=== PATIENT | male | born 1945 | race Hispanic/Latino ===

== ENCOUNTER 2023-10-22 10:12 | Emergency (ER) | payer OTHER ==
--- OUTSIDE RECORDS SUMMARY | 2023-10-22 10:16 | XMS REPORT | Continuity of Care Document ---
Author Name Unknown Address [address] [facility] [place] [address] [facility] thconnect Address [address] [facility] [place] [address] Care Team Providers Care Cement Block Maker Name Role Phone DANIEL OBRIEN Primary Care Physician WANDER Lundberg Attending Clinician Unavailable Wander Carrington Attending Clinician [phone] [facility] Attending Clinician Unavailable Doctor Unassigned, [place] Attending Clinician [facility] Attending Clinicia n Praveen Holcomb DO Attending Clinician [phone] RADHA KAUFMAN Attending Clinician Unavailable Radha Bai Attending Clinician [phone] Unknown, Attending Attending Clinician Unavailab Zainab MARRERO, Sendil K.H. Attending Clinician + [phone] EDUARDO STEELE K.H. Attending Clinician UnavailGENET Ott Attending Clinician Unavailable EZIO GIBBS Attending Clinician Unavail able EZIO GIBBS Attending Clinician Unavail able Lynn MARRERO, Willi Attending Clinician [phone] MIKEY OLSON Attending Clinician Unavaila MIKEY Kenney Attending Clinician UnavailMikey Cat MD Attending Clinician [phone] Only, Adc Test Attending Clinician Unavailable WILLI BAILEY Attending Clinician Unavailable Aissatou KINNEY, To Carrington Attending Clinician Unavail able Dominic Anderson DO Attending Clinician [phone] Clotilde Cramer MD Attending Clinician [phone] No Finn MD Attending Clinici an CLOTILDE CRAMER Attending Clinician Unavailable Irais Cook DO Attending Clinician [phone] Dieudonne Middleton DO Attending Clinician [phone] Shay Thibodeaux MD Attending Clinician [phone] IRAIS COOK Attending Clinician Unavailab WANDER Jessica Admitting Clinician Unavailable WILLI BAILEY Admitting Clinician Unavailable Willi Bailey MD Admitting Clinician [phone] No Finn MD Admitting Clinici an NO FINN Admitting Clinician Unavailable Shay Thibodeaux MD Admitting Clinician [phone] Payers Payer Name Policy Type Policy Number Effective Date Expirati on Date Source [employer] CHO[employer] [id number] 2021 00:00:00 MEDICARE PART A \\T\\ B [id number] 2012 00:00:00 Problems Condition Name Condition Details Condition Category Status Onset Date Resolution Date Last Treatment Date Treating Clinician Comments Source Abdominal pain, left lower quadrant Abdominal pain, left lower quadrant Disease Active 3-03 00:00: 00 [facility] Diverticul itis of large intestine without perforatio n or abscess without bleeding Diverticul itis of large intestine without perforatio n or abscess without bleeding Disease Active 00:00: 00 [facility] Abnormal CT scan, sigmoid colon Abnormal CT scan, sigmoid colon Disease Active 00:00: 00 [facility] A-fib A-fib Disease Active - 00:00: 00 [facility] Syncope and collapse Syncope and collapse Disease Active 08-15 00:00: 00 [facility] Paroxysmal VT Paroxysmal VT Disease Active 4- 00:00: 00 [facility] NSTEMI (non-ST elevated myocardial infarction ) NSTEMI (non-ST elevated myocardial infarction ) Disease Active 4- 00:00: 00 [facility] Elevated troponin Elevated troponin Disease Active 4 00:00: 00 [facility] Elevated troponin Elevated troponin Disease Active 4 00:00: 00 [facility] Essential hypertensi on Essential hypertensi on Disease Active 4 00:00: 00 [facility] SVT (supravent ricular tachycardi a) SVT (supravent ricular tachycardi a) Disease Active 4 00:00: 00 [facility] Dizzy spells Dizzy spells Disease Active 10-13 00:00: 00 [facility] Allergies, Adverse Reactions, Alerts Allergy Name Allergy Type Status Severity Reaction(s) Onset Date Inactive Date Treating Clinician Comments Source NO KNOWN ALLERGIE S Drug Class Active [facility] Social History Social Habit Start Date Stop Date Quantity Comments Source Sexual orientation U [facility] History of tobacco use Cigarette Smoker [facility] Tobacco use and exposure 2023-04-26 00:00:00 2023-04-26 00:00:00 Smokeless tobacco non-user [facility] Exposure to SARS-CoV-2 (event) 2022-08-05 00:00:00 2022-08-15 07:57:00 Not sure [facility] Cigarettes smoked current (pack per day) - Reported 2021-09-08 00:00:00 2021-09-08 00:00:00 [facility] Cigarette pack-years 2021-09-08 00:00:00 2021-09-08 00:00:00 [facility] Alcohol intake 2021-09-08 00:00:00 2021-09-08 00:00:00 Ex-drinker (finding) [facility] History of Social function 2020-11-07 00:00:00 2020-11-07 00:00:00 [facility] Sex Assigned At 1945 00:00:00 1945 00:00:00 [facility] Smoking Status Start Date Stop Date Source Unknown if ever smoked [facility] Ex-smoker 2023-04-26 00:00:00 2023-04-26 00[facility]00[facility]00 [facility]ations Ordered Medication Name Filled Medication Name Start Date Stop Date Current Medication? Ordering Clinician Indication Dosage Frequency Signature (SIG) Comments Components Source iopamidol (ISOVUE 370-500 mL) injection 80 mL 09-15 22:01: 00 09-15 22:06 :00 No [id number] 80mL 80 mL, Intravenou s, ONCE, 1 dose, On Sat09/16/23 at 1615, Routine [facility] aspirin 81 mg EC tablet 12:56: 34 Yes 81mg Take 1 tablet by mouth in the morning. [facility] aspirin 81 mg chewable tablet 12:56: 34 Yes 81mg Take 1 tablet by mouth in the morning. [facility] peg-electro lyte soln 236-22.74-6 .74 -5.86 gram solution 00:00: 00 Yes [id number] Take as directed before colonoscop y [facility] amoxicillin -clavulanat e (AUGMENTIN) 875-125 mg per tablet 1 tablet 2022-07 23:15: 00 04-26 22:28 :00 No 1{tbl} 1 tablet, Oral, ONCE NOW, 1 dose, On Sat04/26/23 at 1815, Routine
Reason for Anti-Infec tive: Documented Infection< br>Documen pasha Infection Site: Abdominal< br>Duratio n of Therapy: 10 days [facility] amoxicillin -clavulanat e 875-125 mg per tablet 2022-07 00:00: 00 Yes [id number] 1{tbl} Take 1 tablet by mouth every 12 (twelve) hours. [facility] amLODIPine 2.5 mg tablet 09-04 00:00: 00 Yes [id number] 2.5mg Take 1 tablet by mouth in the morning. [facility] losartan 25 mg tablet 09-04 00:00: 00 Yes [id number] 25mg Take 1 tablet by mouth in the morning. [facility] losartan 25 mg tablet 08-29 00:00: 00 09-04 00:00 :00 No [id number] 25mg Take 1 tablet by mouth in the morning and 1 tablet in the evening. [facility] aspirin 81 mg EC tablet 07-18 15:15: 41 Yes 81mg Take 81 mg by mouth daily. [facility] aspirin 81 mg chewable tablet 07-18 15:15: 41 Yes 81mg Take 81 mg by mouth daily. [facility] losartan 25 mg tablet 07-18 00:00: 00 08-29 00:00 :00 No [id number] 25mg Take 1 tablet by mouth in the morning. [facility] aspirin 81 mg chewable tablet 01-04 09:43: 44 Yes 81mg Take 81 mg by mouth daily. [facility] heparin (porcine) injection 5,000 Units 09-10 02:00: 00 Yes 5000U 5,000 Units, Subcutaneo us, Q12H, First dose on 09/09/21 at 2000, Until Discontinu ed, Routine [facility] aspirin 81 mg chewable tablet 09-09 15:09: 07 Yes 81mg Take 81 mg by mouth daily. [facility] aspirin chewable tablet 81 mg 09-09 15:00: 00 Yes 81mg 81 mg, Oral, DAILY, First dose on 09/09/21 at 0900, Until Discontinu ed, Routine [facility] atorvastati n 40 mg tablet 09-09 10:43: 12 09-09 00:00 :00 No 40mg Take 40 mg by mouth at bedtime. [facility] atorvastati n (LIPITOR) tablet 40 mg 09-09 03:00: 00 Yes 40mg 40 mg, Oral, QHS, First dose on Sat09/08/21 at 2100, Until Discontinu ed, Routine [facility] metoprolol succinate XL (TOPROL XL) tablet 25 mg 09-09 02:00: 00 Yes 25mg 25 mg, Oral, BID, First dose on Sat09/08/21 at 2000, Until Discontinu ed, Routine [facility] acetaminoph en (TYLENOL) tablet 650 mg 09-09 01:22: 33 Yes 650mg 650 mg, Oral, Q6HPRN, Starting on Sat09/08/21 at 1922, Until Discontinu ed, Routine, Pain (scale 1-3) [facility] metoprolol succinate XL 25 mg 24 hr tablet 09-09 00:00: 00 07-18 00:00 :00 No [id number] 12.5mg Take 0.5 tablets by mouth 2 (two) times daily. [facility] lactated ringers IV infusion 1,000 mL 09-08 22:00: 00 09-09 00:00 :00 No 1000mL at 42 mL/hr, 1,000 mL, IV Infusion, ONCE, 1 dose, On Sat09/08/21 at 1600, Routine, CV Preprocedu re [facility] NaCl 0.9% (NS) IV infusion 09-08 19:56: 41 Yes IV Infusion, CONTINUOUS PRN, Starting on Sat09/08/21 at 1356, Until Discontinu ed, Routine [facility] atorvastati n (LIPITOR) tablet 40 mg 08-17 03:00: 00 Yes 40mg 40 mg, Oral, QHS, First dose on Sat08/16/21 at 2100, Until Discontinu ed, Routine [facility] metoprolol succinate XL (TOPROL XL) tablet 25 mg 08-17 02:00: 00 Yes 25mg 25 mg, Oral, BID, First dose (after last modificati on) on 2/2/22 at 2000, Until Discontinu ed, Routine [facility] aspirin 81 mg chewable tablet 08-16 18:15: 17 Yes 81mg Take 81 mg by mouth daily. [facility] atorvastati n 40 mg tablet 08-16 18:15: 17 Yes 40mg Take 40 mg by mouth at bedtime. [facility] metoprolol succinate XL 25 mg 24 hr tablet 08-16 15:55: 33 08-16 00:00 :00 No 12.5mg Take 12.5 mg by mouth 2 (two) times daily. [facility] sennosides- docusate sodium (SENOKOT-S) 8.6-50 mg per tablet 1 tablet 08-16 15:00: 00 Yes 1{tbl} 1 tablet, Oral, DAILY, First dose on Sat08/16/21 at 0900, Until Discontinu ed, Routine [facility] aspirin chewable tablet 81 mg 08-16 15:00: 00 Yes 81mg 81 mg, Oral, DAILY, First dose on Sat08/16/21 at 0900, Until Discontinu ed, Routine [facility] heparin (porcine) injection 5,000 Units 08-16 14:00: 00 Yes 5000U 5,000 Units, Subcutaneo us, Q12H, First dose on Sat08/16/21 at 0800, Until Discontinu ed, Routine [facility] KCL (KLOR-CON M20) tablet 40 mEq 08-16 12:00: 00 08-16 11:30 :00 No 40meq 40 mEq, Oral, ONCE, 1 dose, On Sat08/16/21 at 0600, Routine [facility] metoprolol succinate XL (TOPROL XL) tablet 12.5 mg 08-16 04:45: 00 08-16 19:57 :51 No 12.5mg 12.5 mg, Oral, BID, First dose on Sat08/15/21 at 2245, Until Discontinu ed, Routine [facility] acetaminoph en (TYLENOL) tablet 650 mg 08-16 04:39: 56 Yes 650mg 650 mg, Oral, Q6HPRN, Starting on Sat08/15/21 at 2239, Until Discontinu ed, Routine, Pain (scale 1-3) [facility] metoprolol succinate XL 25 mg 24 hr tablet 08-16 00:00: 00 09-09 00:00 :00 No [id number] 25mg Take 1 tablet by mouth 2 (two) times daily for 360 days. [facility] NaCl 0.9% (NS) bolus infusion 500 mL 08-15 21:45: 00 08-15 21:27 :00 No 500mL at 999 mL/hr, 500 mL, IV Infusion, ONCE, 1 dose, On Sat08/15/21 at 1545, STAT [facility] aspirin 81 mg EC tablet 2020-07 10:33: 08 Yes 81mg Take 81 mg by mouth daily. [facility] metoprolol succinate XL 25 mg 24 hr tablet 2020-07 1- 00:00: 00 07-18 00:00 :00 No 12.5mg Take 0.5 tablets by mouth 2 (two) times daily with meals. [facility] atorvastati n 40 mg tablet -13 00:00: 00 01-04 00:00 :00 No 40mg Take 40 mg by mouth daily. [facility] Immunizations Ordered Immunization Name Filled Immunization Name Date Status Comments Source SARS-COV-2 COVID-19 PFIZER VACCINE 2020-12-05 00:00:00 Completed [facility] SARS-COV-2 COVID-19 PFIZER VACCINE 2020-12-05 00:00:00 Completed [facility] SARS-COV-2 COVID-19 PFIZER VACCINE 2020-12-05 00:00:00 Completed [facility] SARS-COV-2 COVID-19 PFIZER VACCINE 2020-12-05 00:00:00 Completed [facility] SARS-COV-2 COVID-19 PFIZER VACCINE 2020-12-05 00:00:00 Completed [facility] SARS-COV-2 COVID-19 PFIZER VACCINE 2020-12-05 00:00:00 Completed [facility] SARS-COV-2 COVID-19 PFIZER VACCINE 2020-12-05 00:00:00 Completed [facility] SARS-COV-2 COVID-19 PFIZER VACCINE 2020-12-05 00:00:00 Completed [facility] SARS-COV-2 COVID-19 PFIZER VACCINE 2020-12-05 00:00:00 Completed [facility] SARS-COV-2 COVID-19 PFIZER VACCINE 2020-12-05 00:00:00 Completed [facility] SARS-COV-2 COVID-19 PFIZER VACCINE 2020-12-05 00:00:00 Completed [facility] SARS-COV-2 COVID-19 PFIZER VACCINE 2020-12-05 00:00:00 Completed [facility] SARS-COV-2 COVID-19 PFIZER VACCINE 2020-11-14 00:00:00 Completed [facility] SARS-COV-2 COVID-19 PFIZER VACCINE 2020-11-14 00:00:00 Completed [facility] SARS-COV-2 COVID-19 PFIZER VACCINE 2020-11-14 00:00:00 Completed [facility] SARS-COV-2 COVID-19 PFIZER VACCINE 2020-11-14 00:00:00 Completed [facility] SARS-COV-2 COVID-19 PFIZER VACCINE 2020-11-14 00:00:00 Completed [facility] SARS-COV-2 COVID-19 PFIZER VACCINE 2020-11-14 00:00:00 Completed [facility] SARS-COV-2 COVID-19 PFIZER VACCINE 2020-11-14 00:00:00 Completed [facility] SARS-COV-2 COVID-19 PFIZER VACCINE 2020-11-14 00:00:00 Completed [facility] SARS-COV-2 COVID-19 PFIZER VACCINE 2020-11-14 00:00:00 Completed [facility] SARS-COV-2 COVID-19 PFIZER VACCINE 2020-11-14 00:00:00 Completed [facility] SARS-COV-2 COVID-19 PFIZER VACCINE 2020-11-14 00:00:00 Completed [facility] SARS-COV-2 COVID-19 PFIZER VACCINE 2020-11-14 00:00:00 Completed [facility] SARS-COV-2 COVID-19 PFIZER VACCINE Unknown Completed [facility] SARS-COV-2 COVID-19 PFIZER VACCINE Unknown Completed [facility] SARS-COV-2 COVID-19 PFIZER VACCINE Unknown Completed [facility] SARS-COV-2 COVID-19 PFIZER VACCINE Unknown Completed [facility] SARS-COV-2 COVID-19 PFIZER VACCINE Unknown Completed [facility] SARS-COV-2 COVID-19 PFIZER VACCINE Unknown Completed [facility] SARS-COV-2 COVID-19 PFIZER VACCINE Unknown Completed [facility] SARS-COV-2 COVID-19 PFIZER VACCINE Unknown Completed [facility] SARS-COV-2 COVID-19 PFIZER VACCINE Unknown Completed [facility] SARS-COV-2 COVID-19 PFIZER VACCINE Unknown Completed [facility] SARS-COV-2 COVID-19 PFIZER VACCINE Unknown Completed [facility] SARS-COV-2 COVID-19 PFIZER VACCINE Unknown Completed [facility] SARS-COV-2 COVID-19 PFIZER VACCINE Unknown Completed [facility] SARS-COV-2 COVID-19 PFIZER VACCINE Unknown Completed [facility] SARS-COV-2 COVID-19 PFIZER VACCINE Unknown Completed [facility] SARS-COV-2 COVID-19 PFIZER VACCINE Unknown Completed [facility] SARS-COV-2 COVID-19 PFIZER VACCINE Unknown Completed [facility] SARS-COV-2 COVID-19 PFIZER VACCINE Unknown Completed [facility] SARS-COV-2 COVID-19 PFIZER VACCINE Unknown Completed [facility] SARS-COV-2 COVID-19 PFIZER VACCINE Unknown Completed [facility] Vital Signs Vital Name Observation Time Observation Value Comments S ource Systolic blood pressure 2023-09-12 18:55:00 137 mm[Hg] [facility] Diastolic blood pressure 2023-09-12 18:55:00 83 mm[Hg] [facility] Heart rate 2023-09-12 18:55:00 91 /min [facility] Body temperature 2023-09-12 18:55:00 36.22 Marry [facility] Body height 2023-09-12 18:55:00 165.1 cm [facility] Body weight 2023-09-12 18:55:00 72.576 kg Univ [facility] BMI 2023-09-12 18:55:00 26.63 kg/m2 [facility] Oxygen saturation in Arterial blood by Pulse oximetry 2023-09-12 18:55:00 98 /min [facility] Systolic blood pressure 2023-04-26 22:25:00 118 mm[Hg] [facility] Diastolic blood pressure 2023-04-26 22:25:00 77 mm[Hg] [facility] Heart rate 2023-04-26 22:25:00 69 /min [facility] Body temperature 2023-04-26 22:25:00 36.72 Marry [facility] Respiratory rate 2023-04-26 22:25:00 14 /min [facility] Oxygen saturation in Arterial blood by Pulse oximetry 2023-04-26 22:25:00 98 /min [facility] Body height 2023-04-26 16:57:00 167.6 cm [facility] Body weight 2023-04-26 16:57:00 70.308 kg [facility] BMI 2023-04-26 16:57:00 25.02 kg/m2 [facility] Systolic blood pressure 2023-04-26 16:12:00 141 mm[Hg] [facility] Diastolic blood pressure 2023-04-26 16:12:00 87 mm[Hg] [facility] Heart rate 2023-04-26 16:12:00 106 /min [facility] 2023-04-26 16:12:00 36.89 Marry [facility] Respiratory rate 2023-04-26 16:12:00 17 /min [facility] Body height 2023-04-26 16:12:00 167.6 cm [facility] Body weight 2023-04-26 16:12:00 70.818 kg [facility] 2023-04-26 16:12:00 25.20 kg/m2 [facility] Oxygen saturation in Arterial blood by Pulse oximetry 2023-04-26 16:12:00 98 /min [facility] Systolic blood pressure 2022-07-18 21:07:00 143 mm[Hg] [facility] Diastolic blood pressure 2022-07-18 21:07:00 93 mm[Hg] [facility] Heart rate 2022-07-18 21:07:00 98 /min [facility] Oxygen saturation in Arterial blood by Pulse oximetry 2022-07-18 21:07:00 94 /min [facility] Body temperature 2022-07-18 21:04:00 36.5 Marry [facility] Respiratory rate 2022-07-18 21:04:00 18 /min [facility] Body height 2022-07-18 21:04:00 167.6 cm [facility] Body weight 2022-07-18 21:04:00 74.163 kg [facility] BMI 2022-07-18 21:04:00 26.39 kg/m2 [facility] Systolic blood pressure 2022-01-04 14:43:00 140 mm[Hg] [facility] Diastolic blood pressure 2022-01-04 14:43:00 76 mm[Hg] [facility] Heart rate 2022-01-04 14:41:00 63 /min [facility] Body temperature 2022-01-04 14:41:00 36.28 Marry [facility] Respiratory rate 2022-01-04 14:41:00 18 /min [facility] Body height 2022-01-04 14:41:00 167.6 cm [facility] Body weight 2022-01-04 14:41:00 76.204 kg [facility] BMI 2022-01-04 14:41:00 27.12 kg/m2 [facility] Systolic blood pressure 2021-09-09 18:10:00 115 mm[Hg] [facility] Diastolic blood pressure 2021-09-09 18:10:00 63 mm[Hg] [facility] Heart rate 2021-09-09 18:10:00 58 /min [facility] 2021-09-09 18:10:00 36.11 Marry [facility] Respiratory rate 2021-09-09 18:10:00 18 /min [facility] Oxygen saturation in Arterial blood by Pulse oximetry 2021-09-09 18:10:00 97 /min [facility] Body weight 2021-09-09 11:11:00 77.61 kg [facility] BMI 2021-09-09 11:11:00 26.80 kg/m2 [facility] Body height 2021-09-09 00:37:00 170.2 cm [facility] Systolic blood pressure 2021-08-16 20:47:00 144 mm[Hg] [facility] Diastolic blood pressure 2021-08-16 20:47:00 76 mm[Hg] [facility] Heart rate 2021-08-16 20:47:00 68 /min [facility] Oxygen saturation in Arterial blood by Pulse oximetry 2021-08-16 20:47:00 95 /min [facility] Body temperature 2021-08-16 20:45:00 36.33 Marry [facility] Respiratory rate 2021-08-16 20:45:00 18 /min [facility] Body weight 2021-08-16 04:32:00 77.747 kg [facility] Procedures Procedure Date / Time Performed Performing Clinician Source CONSENT/REFUSAL FOR DIAGNOSIS AND TREATMENT 2023-09-12 06:01:00 Doctor Unassigned, [place] [facility] COMP. METABOLIC PANEL ([id number]) 2023-04-26 19:58:00 Praveen Holcomb [facility] URINALYSIS 2023-04-26 19:58:00 Praveen Holcomb [facility] CBC WITH DIFF 2023-04-26 18:56:00 Praveen Holcomb [facility] CT ABDOMEN PELVIS WO CONTRAST 2023-04-26 18:28:46 Praveen Holcomb [facility] ASSIGNMENT OF BENEFITS 2023-04-26 18:16:23 Docto r Unassigned, [place] [facility] NOTICE OF PRIVACY PRACTICES 2023-04-26 16:39:36 Doctor Unassigned, [place] [facility] CONSENT/REFUSAL FOR DIAGNOSIS AND TREATMENT 2023-04-26 16:38:08 Doctor Unassigned, [place] [facility] ASSIGNMENT OF BENEFITS 2023-04-26 16:04:22 Docto r Unassigned, [place] [facility] PATIENT QUESTIONNAIRE 2022-08-30 06:01:00 Doctor Unassigned, [place] [facility] AUTHORIZATION TO RELEASE PHI TO [facility] 2022-07-18 06:01:00 Doctor Unassigned, [place] [facility] POWER OF SHERIFF'S DETECTIVE 2021-09-14 06:01:00 Doctor Thelma ssigned, [place] [facility] MAGNESIUM 2021-09-09 10:55:00 Aleisha Briones [facility] BASIC METABOLIC PANEL (NA, K, CL, CO2, GLUCOSE, BUN, CREATININE, CA) 2021-09-09 10:55:00 Aleisha Briones [facility] CBC WITH DIFF 2021-09-09 10:55:00 Lorenza Bray [facility] PROTHROMBIN TIME / INR 2021-09-08 16:47:00 Shar Bailey [facility] ASSIGNMENT OF BENEFITS 2021-09-06 15:17:12 Docto r Unassigned, [place] [facility] MAGNESIUM 2021-08-16 07:57:00 Trent Giron [facility] TROPONIN I 2021-08-16 07:57:00 Trent Giron [facility] THYROID STIMULATING HORMONE 2021-08-16 07:57:00 Kevin Morales [facility] BASIC METABOLIC PANEL (NA, K, CL, CO2, GLUCOSE, BUN, CREATININE, CA) 2021-08-16 07:57:00 Trent Giron [facility] CBC WITH DIFF 2021-08-16 07:57:00 Trent Giron [facility] LACTIC ACID WHOLE BLOOD 2021-08-15 21:38:00 , Ph illip [facility] CT HEAD WO CONTRAST 2021-08-15 19:15:32 Maylin Anderson [facility] URINALYSIS 2021-08-15 17:51:00 Dominic Anderson [facility] XR CHEST 1 VW 2021-08-15 17:43:30 Singer [facility] LACTIC ACID WHOLE BLOOD 2021-08-15 17:31:00 Pranay Anderson [facility] CBC WITH DIFF 2021-08-15 17:30:00 Singer [facility] COVID-19 (ID NOW RAPID TESTING) 2021-08-15 17:30:00 Dominic Anderson [facility] TROPONIN I 2021-08-15 17:30:00 Dominic Anderson [facility] COMP. METABOLIC PANEL (96030) 2021-08-15 17:30:00 Singer [facility] NOTICE OF PRIVACY PRACTICES 2021-08-15 17:16:20 Doctor Unassigned, [place] [facility] CONSENT/REFUSAL FOR DIAGNOSIS AND TREATMENT 2021-08-15 17:16:07 Doctor Unassigned, [place] [facility] EMERGENCY SERVICES AGREEMENTS AND AUTHORIZATIONS 2021-08-15 06:01:00 Doctor Unassigned, [place] [facility] Encounters Start Date/Time End Date/Time Encounter Type Admission Type Attending [facility] Care Facility Care Department Encounter ID Source 2024-01-13 09:30:00 2024-01-13 09:30:00 Outpatient WANDER ALANIS [facility] [id number] [facility] 2023-09-16 15:24:23 2023-09-16 23:59:00 Outpatient WANDER ALANIS [facility] [id number] [facility] 2023-09-16 15:24:23 2023-09-16 23:59:00 Hospital Encounter Wander Stauffer [facility] 1.2.840.114 350.1.13.10 4.2.7.2.686 [id number] [facility] 2023-09-12 14:15:00 2023-09-12 14:30:00 Hull Molder Visit Lab, [facility] Eh Wander [facility] 1.0.114 350.1.13.10 4.2.7.2.686 [id number] [facility] 2023-09-12 13:00:00 2023-09-12 14:13:59 Outpatient R EH WANDER [facility] [id number] [facility] 2023-09-12 13:00:00 2023-09-12 14:13:59 Office Visit Eh [facility] [place] [facility] 1.840.114 350.1.13.10 4.2.7.2.686 [id number] [facility] 2023-09-12 00:00:00 2023-09-12 00:00:00 Orders Only Doctor Unassigned, [place] [facility] 1.0.114 350.1.13.10 4.2.7.2.686 [id number] [facility] 2023-07-11 14:30:00 2023-07-11 14:30:00 Outpatient Lalita STAUFFER WANDER [facility] [id number] [facility] 2023-05-01 00:00:00 2023-05-01 00:00:00 Letter (Out) Clinic, [facility] Gastroenter ology [facility] 1.840.114 350.1.13.10 4.2.7.2.686 [id number] [facility] 2023-04-26 11:58:00 2023-04-26 17:36:00 Emergency Praveen Holcomb [facility] 1.2840.114 350.1.13.10 4.2.7.2.686 [id number] [facility] 2023-04-26 11:00:00 2023-04-26 11:11:28 Outpatient RADHA MENDIOLA [facility] [id number] [facility] 2023-04-26 11:00:00 2023-04-26 11:11:28 Urgent Care Radha Kaufman Unknown, [facility]ending [facility] 1.2.840.114 350.1.13.10 4.2.7.2.686 [id number] [facility] 2023-04-26 11:00:00 2023-04-26 11:11:28 Outpatient R RADHA KAUFMAN [facility] [id number] [facility] 2023-04-26 00:00:00 2023-04-26 00:00:00 Orders Only Doctor Unassigned, [place] [facility] 1.2840.114 350.1.13.10 4.2.7.2.686 [id number] [facility] 2022-09-06 00:00:00 2022-09-06 00:00:00 Telephone Eduardo Steele K[facility]iranjan[facility]. [facility] 1.2.840.114 350.1.13.10 4.2.7.2.686 [id number] [facility] 2022-09-03 00:00:00 2022-09-03 00:00:00 Telephone Eduardo SteeleH. [facility] 1.2.840.114 350.1.13.10 4.2.7.2.686 [id number] [facility] 2022-08-30 00:00:00 2022-08-30 00:00:00 Orders Only Doctor Unassigned, [place] [facility] 1.2840.114 350.1.13.10 4.2.7.2.686 [id number] [facility] 2022-08-29 00:00:00 2022-08-29 00:00:00 Telephone Steele, Sendil SoilaNiranjanHectorNiranjan [facility] 1.2.840.114 350.1.13.10 4.2.7.2.686 [id number] [facility] 2022-08-29 00:00:00 2022-08-29 00:00:00 Telephone Ivette Khloeya AlondraNiranjan [facility] 1.2.840.114 350.1.13.10 4.2.7.2.686 [id number] [facility] 2022-08-20 00:00:00 2022-08-20 00:00:00 Telephone Ivette Khloeya AlondraNiranjan [facility] 1.2.840.114 350.1.13.10 4.2.7.2.686 [id number] [facility] 2022-08-16 00:00:00 2022-08-16 00:00:00 Telephone SteeleEduardoNiranjan [facility] 1.2.840.114 350.1.13.10 4.2.7.2.686 [id number] [facility] 2022-08-15 07:58:55 2022-08-15 07:58:55 Outpatient R EDUARDO STEELE [facility] [id number] [facility] 2022-07-18 15:00:00 2022-07-18 15:33:26 Outpatient R IVETTE KHLOEYA [facility] [id number] [facility] 2022-07-18 15:00:00 2022-07-18 15:33:26 Office Visit Ivette Khloeya SoilaNiranjanHectorNiranjan [facility] 1.2.840.114 350.1.13.10 4.2.7.2.686 [id number] [facility] 2022-07-18 00:00:00 2022-07-18 00:00:00 Orders Only Doctor Unassigned, [place] [facility] 1.840.114 350.1.13.10 4.2.7.2.686 [id number] [facility] 2022-06-15 13:30:00 2022-06-15 13:30:00 Outpatient GENET MAYNARD [facility] [id number] [facility] 2022-06-14 13:00:00 2022-06-14 13:00:00 Outpatient EDUARDO HEREDIA [facility] [id number] [facility] 2022-04-09 10:00:00 2022-04-09 10:00:00 Outpatient EDUARDO HEREDIA [facility] [id number] [facility] 2022-01-26 08:00:00 2022-01-26 08:00:00 Outpatient EZIO APONTE [facility] [id number] [facility] 2022-01-04 09:30:00 2022-01-04 10:00:36 Outpatient EDUARDO HEREDIA [facility] [id number] [facility] 2022-01-04 09:30:00 2022-01-04 10:00:36 Office Visit Eduardo Steele [facility] 1..840.114 350..13.10 4.2.7.2.686 [id number] [facility] 2022-01-04 09:30:00 2022-01-04 10:00:36 Outpatient EDUARDO HEREDIA [facility] [id number] [facility] 2021-11-06 00:00:00 2021-11-06 00:00:00 Telephone Willi Bailey [facility] 1..840.114 350.1.13.10 4.2.7.2.686 [id number] [facility] 2021-09-14 00:00:00 2021-09-14 00:00:00 Orders Only Doctor Unassigned, [place] [facility] 1.2.840.114 350.1.13.10 4.2.7.2.686 [id number] [facility] 2021-09-08 10:42:00 2021-09-09 14:00:00 Outpatient R [facility] Hector, [facility] [id number] [facility] 2021-09-08 10:42:00 2021-09-09 14:00:00 Hospital Encounter Willi Bailey [facility] 1.2.840.114 350.1.13.10 4.2.7.2.686 [id number] [facility] 2021-09-06 09:00:00 2021-09-06 09:15:00 Laboratory Only Only, Adc Test Lynn [facility] 1.2.840.114 350.1.13.10 4.2.7.2.686 [id number] [facility] 2021-09-06 09:00:00 2021-09-06 09:00:00 Outpatient R WILLI BAILEY [facility] [id number] [facility] 2021-09-06 00:00:00 2021-09-06 00:00:00 Orders Only Doctor Unassigned, [place] [facility] 1.2.840.114 350.1.13.10 4.2.7.2.686 [id number] [facility] 2021-08-29 00:00:00 2021-08-29 00:00:00 Orders Only Doctor Unassigned, [place] [facility] 1.2.840.114 350.1.13.10 4.2.7.2.686 [id number] [facility] 2021-08-17 00:00:00 2021-08-17 00:00:00 Transition of Care Aissatou To SALASDarlyn CASSIDY KHALIL 1.2.840.114 350.1.13.10 4.2.7.2.686 [id number] [facility] 2021-08-15 11:08:00 2021-08-16 18:00:00 Hospital Encounter Dominic Anderson [facility] [place] 1.2.840.114 350.1.13.10 4.2.7.2.686 [id number] [facility] 2021-08-15 11:08:00 2021-08-16 18:00:00 Inpatient X CLOTILDE CRAMER [facility] [id number] [facility] 2021-08-11 08:00:00 2021-08-11 09:00:03 Outpatient R LYNN PAUL [facility] [id number] [facility] 2021-08-11 08:00:00 2021-08-11 08:20:00 Office Visit Willi Bailey [facility] 1.2.840.114 350.1.13.10 4.2.7.2.686 [id number] [facility] 2021-08-11 08:00:00 2021-08-11 08:00:00 Outpatient R WILLI BAILEY [facility] [id number] [facility] 2021-06-15 10:00:00 2021-06-15 10:35:25 Outpatient R EDUARDO STEELE [facility] [id number] [facility] 2021-06-15 09:55:44 2021-06-15 10:35:25 Office Visit Eduardo Steele [facility] 1.2.840.114 350.1.13.10 4.2.7.2.686 [id number] [facility] 2021-05-25 00:00:00 2021-05-25 00:00:00 Refill Eduardo Steele [facility] 1.2.840.114 350.1.13.10 4.2.7.2.686 [id number] [facility] 2021-02-07 10:03:03 2021-02-07 23:59:00 Outpatient R EDUARDO STEELE [facility] [id number] [facility] 2021-02-07 09:25:40 2021-02-07 10:18:27 Office Visit Eduardo Steele [facility] 1.2.840.114 350.1.13.10 4.2.7.2.686 [id number] [facility] 2021-02-07 09:30:00 2021-02-07 09:30:00 Outpatient R EDUARDO STEELE [facility] [id number] [facility] 2021-02-07 00:00:00 2021-02-07 00:00:00 Orders Only Doctor Unassigned, [place] [facility] 1.2.840.114 350.1.13.10 4.2.7.2.686 [id number] [facility] 2020-11-29 00:00:00 2020-11-29 00:00:00 Telephone Eduardo Steele [facility] 1.2.840.114 350.1.13.10 4.2.7.2.686 [id number] [facility] 2020-11-14 15:20:00 2020-11-14 15:20:[address] [facility] [id number] [facility] 2020-11-11 00:00:00 2020-11-11 00:00:00 Telephone Eduardo Steele [facility] Building 1.2.840.114 350.1.13.10 4.2.7.2.686 [id number] [facility] 2020-11-07 10:22:59 2020-11-07 11:06:05 Office Visit Eduardo Steele [facility] Building 1.2.840.114 350.1.13.10 4.2.7.2.686 [id number] [facility] 2020-11-07 10:30:00 2020-11-07 10:30:00 Outpatient R EDUARDO STEELE [facility] [id number] [facility] 2020-10-26 00:00:00 2020-10-26 00:00:00 Orders Only Doctor Unassigned, [place] [facility] 1.2.840.114 350.1.13.10 4.2.7.2.686 [id number] [facility] 2020-10-17 00:00:00 2020-10-17 00:00:00 Transition of Care To Reyez 1.2.840.114 350.1.13.10 4.2.7.2.686 [id number] [facility] 2020-10-13 13:59:00 2020-10-15 13:15:00 Hospital Encounter Irais Cook, Dieudonne Thibodeaux, Shay Rhodes [facility] 1.2840.114 350.1.13.10 4.2.7.2.686 [id number] [facility] 2020-10-13 13:59:00 2020-10-13 13:59:00 Emergency X IRAIS COOK [facility] ERT [id number] [facility] Results Test Description Test Time Test Comments Results Result Co mments Source [facility] WITH [id number] 19:20:12* Test Item Value Reference Range Interpretation Comme nts WBC (test code = 6690-2) 9.71 See_Comment [Automated messa ge] The system which generated this result transmitted reference range: 4.20 - 10.70 10*3/?L. The reference range was not used to interpret this result as normal/abnormal. RBC (test code = 789-8) 5.13 See_Comment [Automated messa ge] The system which generated this result transmitted reference range: 4.26 - 5.52 10*6/?L. The reference range was not used to interpret this result as normal/abnormal. HGB (test code = 718-7) 14.9 g/dL 12.2-16.4 HCT (test code = 4544-3) 45.0 % 38.4-49.3 MCV (test code = 787-2) 87.7 fL 81.7-95.6 MCH (test code = 785-6) 29.0 pg 26.1-32.7 MCHC (test code = 786-4) 33.1 g/dL 31.2-35.0 RDW-SD (test code = 08186-0) 40.0 fL 38.5-51.6 RDW-CV (test code = 788-0) 12.4 % 12.1-15.4 PLT (test code = 777-3) 277 See_Comment [Automated messa ge] The system which generated this result transmitted reference range: 150 - 328 10*3/?L. The reference range was not used to interpret this result as normal/abnormal. MPV (test code = 86116-2) 10.5 fL 9.8-13.0 NRBC/100 WBC (test code = 0045389114) 0.0 See_Comment [Automated me ssage] The system which generated this result transmitted reference range: 0.0 - 10.0 /100 WBCs. The reference range was not used to interpret this result as normal/abnormal. NRBC x10^3 (test code = 3760939203) See_Comment [Automated messa ge] The system which generated this result transmitted reference range: 10*3/?L. The reference range was not used to interpret this result as normal/abnormal. GRAN MAT (NEUT) % (test code = 770-8) 79.5 % IMM GRAN % (test code = 8011454354) 0.30 % LYMPH % (test code = 736-9) 14.5 % MONO % (test code = 5905-5) 4.6 % EOS % (test code = 713-8) 0.6 % BASO % (test code = 706-2) 0.5 % GRAN MAT x10^3(ANC) (test code = 1799318313) 7.71 10*3/uL 1.99-6.95 H IMM GRAN x10^3 (test code = 8693566632) 0.03 10*3/uL 0.00-0.06 LYMPH x10^3 (test code = 731-0) 1.41 10*3/uL 1.09-3.23 MONO x10^3 (test code = 742-7) 0.45 10*3/uL 0.36-1.02 EOS x10^3 (test code = 711-2) 0.06 10*3/uL 0.06-0.53 BASO x10^3 (test code = 704-7) 0.05 10*3/uL 0.01-0.09 Lab Interpretation (test code = 45658-1) [facility] 12:01:05* Test Item Value Reference Range Interpretation Comme nts MAGNESIUM (test code = 9569386302) 1.9 mg/dL 1.7-2.4 Lab Interpretation (test cod e = 32046-8) [facility] (NA, K, CL, CO2, GLUCOSE, BUN, CREATININE, CA)2021-09-09 12:01:04* Test Item Value Reference Range Interpretation Comme nts NA (test code = 1467436482) 139 mmol/L 135-145 K (test code = 2752520899) 4.0 mmol/L 3.5-5.0 CL (test code = 8273043401) 108 mmol/L 98-108 CO2 TOTAL (test code = 4623742838) 26 mmol/L 23-31 AGAP (test code = 4389305158) 2-16 BUN (test code = 7849309650) 11 mg/dL 7-23 GLUCOSE (test code = 5195357292) 96 mg/dL 70-110 CREATININE (test code = 8008538948) 0.76 mg/dL 0.60-1.25 CALCIUM (test code = 8565235403) 8.2 mg/dL 8.6-10.6 L eGFR (test code = 9326203623) mL/min/1.73m2 JOAQUIM (test code = JOAQUIM) Association of Glomerular Filtration Rate (GFR) and Staging of Kidney Disease* + --+ --+ ------+| GFR (mL/min/1.73 m2) ?| With Kidney Damage ?| ?Without Kidney Damage+ --------+ --------+ +| ?>90 ?| ?Stage one ?| ? Normal ?+ ---+ ---+ -------+| ?60-89 ?| ?Stage two ?| ? Decreased GFR ? + --+ --+ ------+| ?30-59 ?| ?Stage three ?| ? Stage three ? + --+ --+ ------+| ?15-29 ?| ?Stage four ? | ? Stage four ?+ ---+ ---+ -------+| ?<15 (or dialysis) ? ?| ?Stage five ? | ? Stage five ?+ ---+ ---+ -------+ *Each stage assumes the associated GFR level has been in effect for at least three months. ?Stages 1 to 5, with or without kidney disease, indicate chronic kidney disease. Notes: Determination of stages one and two (with eGFR >59mL/min/1.73 m2) requires estimation of kidney damage for at least three months as defined by structural or functional abnormalities of the kidney, manifested by either:Pathological abnormalities or Markers of kidney damage (including abnormalities in the composition of the blood or urine or abnormalities in imaging tests). Lab Interpretation (test code = 13247-6) Abnormal [facility] with [id number] 11:44:22* Test Item Value Reference Range Interpretation Comme nts WBC (test code = 6690-2) See_Comment [Automated Phraxis] The system which generated this result transmitted reference range: 4.20 - 10.70 10*3/?L. The reference range was not used to interpret this result as normal/abnormal. RBC (test code = 789-8) See_Comment [Automated messa ge] The system which generated this result transmitted reference range: 4.26 - 5.52 10*6/?L. The reference range was not used to interpret this result as normal/abnormal. HGB (test code = 718-7) 12.8 g/dL 12.2-16.4 HCT (test code = 4544-3) 37.4 % 38.4-49.3 L MCV (test code = 787-2) 86.6 fL 81.7-95.6 MCH (test code = 785-6) 29.6 pg 26.1-32.7 MCHC (test code = 786-4) 34.2 g/dL 31.2-35.0 RDW-SD (test code = 53193-2) 38.5 fL 38.5-51.6 RDW-CV (test code = 788-0) 12.3 % 12.1-15.4 PLT (test code = 777-3) See_Comment [Automated messa ge] The system which generated this result transmitted reference range: 150 - 328 10*3/?L. The reference range was not used to interpret this result as normal/abnormal. MPV (test code = 21689-2) 10.6 fL 9.8-13.0 NRBC/100 WBC (test code = 8870347145) See_Comment [Automated [email or web address] ssage] The system which generated this result transmitted reference range: 0.0 - 10.0 /100 WBCs. The reference range was not used to interpret this result as normal/abnormal. NRBC x10^3 (test code = 1862560522) <0.01 See_Comment [Automated messa ge] The system which generated this result transmitted reference range: 10*3/?L. The reference range was not used to interpret this result as normal/abnormal. GRAN MAT (NEUT) % (test code = 770-8) 59.4 % IMM GRAN % (test code = 2464480360) 0.30 % LYMPH % (test code = 736-9) 29.1 % MONO % (test code = 5905-5) 7.7 % EOS % (test code = 713-8) 3.0 % BASO % (test code = 706-2) 0.5 % GRAN MAT x10^3(ANC) (test code = 3272958041) 3.40 10*3/uL 1.99-6.95 IMM GRAN x10^3 (test code = 4086030761) <0.03 0.00-0.06 LYMPH x10^3 (test code = 731-0) 1.67 10*3/uL 1.09-3.23 MONO x10^3 (test code = 742-7) 0.44 10*3/uL 0.36-1.02 EOS x10^3 (test code = 711-2) 0.17 10*3/uL 0.06-0.53 BASO x10^3 (test code = 704-7) 0.03 10*3/uL 0.01-0.09 Lab Interpretation (test code = 28135-1) [facility]normal [facility] [id number] 18:57:34* Test Item Value Reference Range Interpretation Comme nts PROTIME PATIENT (test code = 5964-2) See_Comment [Automated [employer]] The system which generated this result transmitted reference range: 10.1 - 12.6 Seconds. The reference range was not used to interpret this result as normal/abnormal. INR (test code = 6301-6) Normal INR <1.1; Warfarin Therapeutic range 2.0 to 3.0 or 2.5 to 3.5, depending upon the indications. Lab Interpretation (test code = 09714-0) Normal [facility] [id number] 17:48:16 * Test Item Value Reference Range Interpretation Comme nts TSH (test code = 5486826028) See_Comment [Automated [employer]] The system which generated this result transmitted reference range: 0.45 - 4.70 mIU/L. The reference range was not used to interpret this result as normal/abnormal. Lab Interpretation (test code = 76978-6) Normal [facility] [id number] 08:50:27* Test Item Value Reference Range Interpretation Comments TROPONIN I (test code = 0398162102) 0.002 ng/mL See_Comment [Automated message] The system which generated this result transmitted reference range: <=0.034. The reference range was not used to interpret this result as normal/abnormal. JOAQUIM (test code = JOAQUIM) Reference (Normal) Range (defined by the 99th percentile reference limit): <= 0.034 ng/mL Note: Cardiac troponin begins to rise 3-4 hours after the onset of ischemia. Repeat in 4-6 hours if the sample was drawn within 3-4 hours of the onset of the symptom and found normal. Diagnosis of myocardial injury is made with acute changes in cTn concentrations with at least one serial sample above the 99th percentile upper reference limit (URL), taken together with the patient's clinical presentation. Biotin has been reported to cause a negative bias, interpret results relative to patient's use of biotin. Lab Interpretation (test code = 74733-8) Normal [facility] Metabolic Panel (NA, K, CL, CO2, GLUCOSE, BUN, CREATININE, CA)2021-08-16 08:35:43* Test Item Value Reference Range Interpretation Comme nts NA (test code = 4667289331) 135 mmol/L 135-145 K (test code = 2356159374) 3.7 mmol/L 3.5-5.0 CL (test code = 6182983501) 106 mmol/L 98-108 CO2 TOTAL (test code = 1343405970) 25 mmol/L 23-31 AGAP (test code = 1360342933) 2-16 BUN (test code = 8838651718) 10 mg/dL 7-23 GLUCOSE (test code = 8460172332) 119 mg/dL 70-110 H CREATININE (test code = 9882036671) 0.77 mg/dL 0.60-1.25 CALCIUM (test code = 6549333647) 8.6 mg/dL 8.6-10.6 eGFR (test code = 2661699517) mL/min/1.73m2 JOAQUIM (test code = JOAQUIM) Association of Glomerular Filtration Rate (GFR) and Staging of Kidney Disease* + --+ --+ ------+| GFR (mL/min/1.73 m2) ?| With Kidney Damage ?| ?Without Kidney Damage+ --------+ --------+ +| ?>90 ?| ?Stage one ?| ? Normal ?+ ---+ ---+ -------+| ?60-89 ?| ?Stage two ?| ? Decreased GFR ? + --+ --+ ------+| ?30-59 ?| ?Stage three ?| ? Stage three ? + --+ --+ ------+| ?15-29 ?| ?Stage four ? | ? Stage four ?+ ---+ ---+ -------+| ?<15 (or dialysis) ? ?| ?Stage five ? | ? Stage five ?+ ---+ ---+ -------+ *Each stage assumes the associated GFR level has been in effect for at least three months. ?Stages 1 to 5, with or without kidney disease, indicate chronic kidney disease. Notes: Determination of stages one and two (with eGFR >59mL/min/1.73 m2) requires estimation of kidney damage for at least three months as defined by structural or functional abnormalities of the kidney, manifested by either:Pathological abnormalities or Markers of kidney damage (including abnormalities in the composition of the blood or urine or abnormalities in imaging tests). Lab Interpretation (test code = 91845-4) [facility]normal [id number] 08:35:43* Test Item Value Reference Range Interpretation Comme nts MAGNESIUM (test code = 9484367284) 2.0 mg/dL 1.7-2.4 Lab Interpretation (test cod e = 70056-4) Normal [facility] with Iajbimesirrr6913-48-47 08:13:44* Test Item Value Reference Range Interpretation Comme nts WBC (test code = 6690-2) See_Comment [Automated Phraxis] The system which generated this result transmitted reference range: 4.20 - 10.70 10*3/?L. The reference range was not used to interpret this result as normal/abnormal. RBC (test code = 789-8) See_Comment [Automated Phraxis] The system which generated this result transmitted reference range: 4.26 - 5.52 10*6/?L. The reference range was not used to interpret this result as normal/abnormal. HGB (test code = 718-7) 14.2 g/dL 12.2-16.4 HCT (test code = 4544-3) 41.3 % 38.4-49.3 MCV (test code = 787-2) 85.9 fL 81.7-95.6 MCH (test code = 785-6) 29.5 pg 26.1-32.7 MCHC (test code = 786-4) 34.4 g/dL 31.2-35.0 RDW-SD (test code = 99566-7) 37.3 fL 38.5-51.6 L RDW-CV (test code = 788-0) 11.9 % 12.1-15.4 L PLT (test code = 777-3) See_Comment [Automated messa ge] The system which generated this result transmitted reference range: 150 - 328 10*3/?L. The reference range was not used to interpret this result as normal/abnormal. MPV (test code = 78043-2) 10.2 fL 9.8-13.0 NRBC/100 WBC (test code = 9318911621) See_Comment [Automated [email or web address] ssage] The system which generated this result transmitted reference range: 0.0 - 10.0 /100 WBCs. The reference range was not used to interpret this result as normal/abnormal. NRBC x10^3 (test code = 8697874402) <0.01 See_Comment [Automated [employer]traV[employer] ge] The system which generated this result transmitted reference range: 10*3/?L. The reference range was not used to interpret this result as normal/abnormal. GRAN MAT (NEUT) % (test code = 770-8) 63.9 % IMM GRAN % (test code = 3226388910) 0.40 % LYMPH % (test code = 736-9) 26.3 % MONO % (test code = 5905-5) 7.0 % EOS % (test code = 713-8) 1.8 % BASO % (test code = 706-2) 0.6 % GRAN MAT x10^3(ANC) (test code = 7445681124) 4.93 10*3/uL 1.99-6.95 IMM GRAN x10^3 (test code = 0021031942) 0.03 10*3/uL 0.00-0.06 LYMPH x10^3 (test code = 731-0) 2.03 10*3/uL 1.09-3.23 MONO x10^3 (test code = 742-7) 0.54 10*3/uL 0.36-1.02 EOS x10^3 (test code = 711-2) 0.14 10*3/uL 0.06-0.53 BASO x10^3 (test code = 704-7) 0.05 10*3/uL 0.01-0.09 Lab Interpretation (test code = 85163-2) [id number]* Test Item Value Reference Range Interpretation Comments TROPONIN I (test code = 6121384118) 0.005 ng/mL See_Comment [Automated message] The system which generated this result transmitted reference range: <=0.034. The reference range was not used to interpret this result as normal/abnormal. JOAQUIM (test code = JOAQUIM) Reference (Normal) Range (defined by the 99th percentile reference limit): <= 0.034 ng/mL Note: Cardiac troponin begins to rise 3-4 hours after the onset of ischemia. Repeat in 4-6 hours if the sample was drawn within 3-4 hours of the onset of the symptom and found normal. Diagnosis of myocardial injury is made with acute changes in cTn concentrations with at least one serial sample above the 99th percentile upper reference limit (URL), taken together with the patient's clinical presentation. Biotin has been reported to cause a negative bias, interpret results relative to patient's use of biotin. Lab Interpretation (test code = 85073-8) [facility]OL[facility] (05756)2021-08-15 18:44:21* Test Item Value Reference Range Interpretation Comme nts NA (test code = 0409259817) 134 mmol/L 135-145 L K (test code = 4579632494) 3.8 mmol/L 3.5-5.0 CL (test code = 2861712394) 103 mmol/L 98-108 CO2 TOTAL (test code = 3355812341) 22 mmol/L 23-31 L AGAP (test code = 7188239802) 2-16 BUN (test code = 6066219268) 10 mg/dL 7-23 GLUCOSE (test code = 0235430416) 114 mg/dL 70-110 H CREATININE (test code = 6781279542) 0.76 mg/dL 0.60-1.25 TOTAL BILI (test code = 2202959763) 0.7 mg/dL 0.1-1.1 CALCIUM (test code = 0428574461) 8.8 mg/dL 8.6-10.6 T PROTEIN (test code = 5093082749) 7.4 g/dL 6.3-8.2 ALBUMIN (test code = 9796528928) 4.4 g/dL 3.5-5.0 ALK PHOS (test code = 3162770824) 98 U/L 34-122 ALTv (test code = 1742-6) 29 U/L 5-50 AST(SGOT) (test code = 1002595085) 28 U/L 13-40 eGFR (test code = 3427706380) mL/min/1.73m2 JOAQUIM (test code = JOAQUIM) Association of Glomerular Filtration Rate (GFR) and Staging of Kidney Disease* + --+ --+ ------+| GFR (mL/min/1.73 m2) ?| With Kidney Damage ?| ?Without Kidney Damage+ --------+ --------+ +| ?>90 ?| ?Stage one ?| ? Normal ?+ ---+ ---+ -------+| ?60-89 ?| ?Stage two ?| ? Decreased GFR ? + --+ --+ ------+| ?30-59 ?| ?Stage three ?| ? Stage three ? + --+ --+ ------+| ?15-29 ?| ?Stage four ? | ? Stage four ?+ ---+ ---+ -------+| ?<15 (or dialysis) ? ?| ?Stage five ? | ? Stage five ?+ ---+ ---+ -------+ *Each stage assumes the associated GFR level has been in effect for at least three months. ?Stages 1 to 5, with or without kidney disease, indicate chronic kidney disease. Notes: Determination of stages one and two (with eGFR >59mL/min/1.73 m2) requires estimation of kidney damage for at least three months as defined by structural or functional abnormalities of the kidney, manifested by either:Pathological abnormalities or Markers of kidney damage (including abnormalities in the composition of the blood or urine or abnormalities in imaging tests). Lab Interpretation (test code = 41024-6) Abnormal [facility] WITH [id number] 18:13:55* Test Item Value Reference Range Interpretation Comme nts WBC (test code = 6690-2) See_Comment [Automated messa ge] The system which generated this result transmitted reference range: 4.20 - 10.70 10*3/?L. The reference range was not used to interpret this result as normal/abnormal. RBC (test code = 789-8) See_Comment [Automated messa ge] The system which generated this result transmitted reference range: 4.26 - 5.52 10*6/?L. The reference range was not used to interpret this result as normal/abnormal. HGB (test code = 718-7) 15.1 g/dL 12.2-16.4 HCT (test code = 4544-3) 43.2 % 38.4-49.3 MCV (test code = 787-2) 85.4 fL 81.7-95.6 MCH (test code = 785-6) 29.8 pg 26.1-32.7 MCHC (test code = 786-4) 35.0 g/dL 31.2-35.0 RDW-SD (test code = 94744-3) 36.0 fL 38.5-51.6 L RDW-CV (test code = 788-0) 11.7 % 12.1-15.4 L PLT (test code = 777-3) See_Comment [Automated messa ge] The system which generated this result transmitted reference range: 150 - 328 10*3/?L. The reference range was not used to interpret this result as normal/abnormal. MPV (test code = 88102-6) 10.5 fL 9.8-13.0 NRBC/100 WBC (test code = 0509917103) See_Comment [Automated [email or web address] ssage] The system which generated this result transmitted reference range: 0.0 - 10.0 /100 WBCs. The reference range was not used to interpret this result as normal/abnormal. NRBC x10^3 (test code = 6808273154) <0.01 See_Comment [Automated messa ge] The system which generated this result transmitted reference range: 10*3/?L. The reference range was not used to interpret this result as normal/abnormal. GRAN MAT (NEUT) % (test code = 770-8) 67.0 % IMM GRAN % (test code = 4647690205) 0.30 % LYMPH % (test code = 736-9) 25.0 % MONO % (test code = 5905-5) 6.0 % EOS % (test code = 713-8) 1.2 % BASO % (test code = 706-2) 0.5 % GRAN MAT x10^3(ANC) (test code = 8193786583) 5.04 10*3/uL 1.99-6.95 IMM GRAN x10^3 (test code = 5520041557) <0.03 0.00-0.06 LYMPH x10^3 (test code = 731-0) 1.88 10*3/uL 1.09-3.23 MONO x10^3 (test code = 742-7) 0.45 10*3/uL 0.36-1.02 EOS x10^3 (test code = 711-2) 0.09 10*3/uL 0.06-0.53 BASO x10^3 (test code = 704-7) 0.04 10*3/uL 0.01-0.09 Lab Interpretation (test code = 35041-5) Abnormal [facility] Notes Date/Time Note Provider Source 2023-09-12 14:15:00 [id number] KpjWgaPKw8s3gydqS0GlOX1261-81-32B19:15:00F ormatting of this note is different from the original.Images from the original note were not included.Venipuncture collection performed by clean technique on the left anticubitus. Total of 1 attempts were made. Slight pressure and a bandage/dressing were applied to the site(s). The patient experienced no complications. The following specimens were processed according to instructions and sent to [facility] laboratories per lab order on 09/12/23:LT BLUE1 SSTREDLAVPPTDK GREEN (LiHep)DK GREEN (SodH)GRAYDK BLUE (K2)DK BLUE (S)ACDBlood CultureNIPT/NTD [id number] DborES4292-80-92Q32:31:44Nurse NoteTXT1.2.840.297612.1.13.104.2.7.2.52051 9|[id number] for patient gpgo49536-9Rsmmw NoteLNNARRATIVEFormatted C-CDA narrative text[address] Ka[id number] WZJFFCXOEGLDFHUZ5142-08-01K05:31:441.2.840 .087216.1.72.3.15|1.2.840.855328.1.13.104. [id number] [facility]"
[2023-10-22] MEDS ORDERED: NA CHLORIDE 0.9% 1,000 ML ONE (10:44)
[2023-10-22] MEDS ORDERED: ONDANSETRON 4 MG/2 ML VIAL ONE (10:44)
[2023-10-22] MEDS ORDERED: MORPHINE 4 MG/ML SYR ONE ×2 (10:44→15:32)
[2023-10-22 11:22] LABS: Absolute Lymphocytes (CBC) 0.9 K/uL (0.7-4.9); Absolute Monocytes 0.7 K/uL (0.1-1.3); Absolute Neutrophil 10.1 K/uL (1.8-8.0); Basophils % 0.1 % (0-1.3); Eosinophils % 0.1 % (0-4.4); Hematocrit 40.3 % (39.6-49.0); Hemoglobin 13.4 g/dL (13.6-17.9); Lymphocytes % 7.3 % (15.3-44.8); MCH 28.1 pg (27.0-35.0); MCHC 33.3 g/dL (32.0-36.0); MCV 84.4 fL (80-100); MPV 8.1 fL (7.6-11.3); Monocytes % 5.8 % (3.3-12.3); Neutrophils % 86.7 % (41.7-73.7); Platelets 334 thou/uL (152-406); RBC Red Blood Cell Count 4.78 M/uL (4.33-5.43)
[2023-10-22 11:44] LABS: Albumin 2.8 g/dL (3.4-5.0); Albumin/Globulin Ratio 0.6 (1.1-1.8); Anion Gap 9.2 mEq/L (5.0-15.0); Bilirubin Total 0.8 mg/dL (0.2-1.0); Globulin 4.7 g/dL (2.3-3.5); Potassium 3.2 mEq/L (3.5-5.1); Protein, Total 7.5 g/dL (6.4-8.2)
--- NOTE | 2023-10-22 12:42 | RAD REPORT ---
EXAM DESCRIPTION: CTAbdomen Pelvis W Contrast - 10/22/2023 12:30 pm CLINICAL HISTORY: Abdominal pain. ABD PAIN COMPARISON: No comparisons TECHNIQUE: Biphasic CT imaging of the abdomen and pelvis was performed with 100 ml non-ionic IV cont rast. All CT scans are performed using dose optimization technique as appropriate and may include automated exposure control or mA/KV adjustment according to patient size. FINDINGS: Linear atelectasis is present in both lung bases. 11 mm cyst is present in the left lobe of the liver medially. No aggressive liver lesion or biliary d ilatation. The spleen, pancreas, adrenal glands and kidneys are within normal limits. Moderate dilated fluid-filled small bowel loops are present in the abdomen compatible with partial me chanical small-bowel obstruction. In addition, there is moderate obstruction of the colon. This appe ars to be caused by a large mass measuring 10 cm in length and 7 cm in transverse dimension with mult iple surrounding pericolonic lymph nodes present this likely represents neoplasia of the colon. Sever al additional enlarged local lymphadenopathy is present. Trace free fluid is seen in the inferior abd omen and pelvis. No lytic or blastic bone lesion IMPRESSION: Very large sigmoid colon mass is present measuring approximately 10 x 7 cm. Multiple enl arged lymph nodes are seen surrounding the mass and any local/ regional stations. The findings are mo st compatible with neoplasia. Moderate mechanical obstruction of the colon and small intestine from this finding.
[2023-10-22 13:18] LABS: Blood Morphology Comment NOT SEEN (NOT SEEN); Platelet Estimate ADEQ; White Blood Cell Scan OK (OK)
[2023-10-22] MEDS ORDERED: POTASSIUM CL SA 10 MEQ TAB PO ONE (13:43)
--- NOTE | 2023-10-22 14:20 | ER ---
Nurse's Notes [facility] Name: Kwadwo Morrissey Age: 78 yrs Sex: Male : 1945 Arrival Date: 10/22/2023 Time: 10:12 Bed 5 Private MD: Diagnosis: Localized swelling, mass and lump, unspecified-Colon mass;Other intestinal obstruction Presentation: 10/21 10:51 Chief complaint: Patient states: he had a colonoscopy yesterday to check for a bowel 6 mass. pt states he's had increased pain, black stool, and weakness today. Coronavirus screen: At this time, the client does not indicate any symptoms associated with coronavirus-19. Ebola Screen: No symptoms or risks identified at this time. Initial Sepsis Screen: Does the patient meet any 2 criteria? No. Patient's initial sepsis screen is negative. Does the patient have a suspected source of infection? No. Patient's initial sepsis screen is negative. Risk Assessment: Do you want to hurt yourself or someone else? Patient reports no desire to harm self or others. Onset of symptoms was October 22, 2023. 10:51 Method Of Arrival: Ambulatory [facility] 10:51 Acuity: LIZZETTE 3 kc6 Historical: - Allergies: 10:53 No Known Allergies; kc6 - PMHx: 11:24 Myocardial infarction; Hypertensive disorder; kc6 - PSHx: 11:24 cardiac ablation; kc6 - Immunization history:: Adult Immunizations unknown. - Infectious Disease History:: Denies. - Social history:: Smoking status: unknown. - History obtained from: son. Screenin:50 [facility] ED Fall Risk Assessment (Adult) History of falling in the last 3 months, kc6 including since admission No falls in past 3 months (0 pts) Confusion or Disorientation No (0 pts) Intoxicated or Sedated No (0 pts) Impaired Gait No (0 pts) Mobility Assist Device Used No (0 pt) Altered Elimination No (0 pt) Score/Fall Risk Level 0 - 2 = Low Risk. Abuse screen: Denies threats or abuse. Denies injuries from another. Nutritional screening: No deficits noted. Tuberculosis screening: No symptoms or risk factors identified. Assessment: 10:53 General: Appears in no apparent distress. uncomfortable, well groomed, well developed, kc6 Behavior is calm, cooperative, appropriate for age. Pain: Complains of pain in abdomen. Neuro: Level of Consciousness is awake, alert, obeys commands, Oriented to person, place, time, situation, Appropriate for age. Cardiovascular: Capillary refill < 3 seconds. Respiratory: Airway is patent Trachea midline Respiratory effort is even, unlabored, Respiratory pattern is regular, symmetrical. GI: Abdomen is flat, non-distended, Bowel sounds present X 4 quads. Abd is soft X 4 quads Abdomen is tender to palpation X 4 quads. Reports bloody stool, Patient currently denies nausea, vomiting. : No signs and/or symptoms were reported regarding the genitourinary system. EENT: No signs and/or symptoms were reported regarding the EENT system. Derm: No signs and/or symptoms reported regarding the dermatologic system. Skin is intact, is healthy with good turgor, Skin is pink, warm \T\ dry. Musculoskeletal: No signs and/or symptoms reported regarding the musculoskeletal system. Circulation, motion, and sensation intact. Capillary refill < 3 seconds, Range of motion: intact in all extremities. 11:55 Reassessment: Patient appears in no apparent distress at this time. No changes from kc6 previously documented assessment. Patient and/or family updated on plan of care and expected duration. Pain level reassessed. Patient is alert, oriented x 3, equal unlabored respirations, skin warm/dry/pink. Patient states feeling better. Patient states symptoms have improved. 12:55 Reassessment: Patient appears in no apparent distress at this time. No changes from kc6 previously documented assessment. Patient and/or family updated on plan of care and expected duration. Pain level reassessed. Patient is alert, oriented x 3, equal unlabored respirations, skin warm/dry/pink. 13:50 Reassessment: Patient appears in no apparent distress at this time. No changes from kc6 previously documented assessment. Patient and/or family updated on plan of care and expected duration. Pain level reassessed. Patient is alert, oriented x 3, equal unlabored respirations, skin warm/dry/pink. 14:50 Reassessment: Patient appears in no apparent distress at this time. No changes from kc6 previously documented assessment. Patient and/or family updated on plan of care and expected duration. Pain level reassessed. Patient is alert, oriented x 3, equal unlabored respirations, skin warm/dry/pink. 15:50 Reassessment: Patient appears in no apparent distress at this time. No changes from kc6 previously documented assessment. Patient and/or family updated on plan of care and expected duration. Pain level reassessed. Patient is alert, oriented x 3, equal unlabored respirations, skin warm/dry/pink. 16:50 Reassessment: Patient appears in no apparent distress at this time. No changes from kc6 previously documented assessment. Patient and/or family updated on plan of care and expected duration. Pain level reassessed. Patient is alert, oriented x 3, equal unlabored respirations, skin warm/dry/pink. 17:12 Reassessment: Patient appears in no apparent distress at this time. No changes from kc6 previously documented assessment. Patient and/or family updated on plan of care and expected duration. Pain level reassessed. Patient is alert, oriented x 3, equal unlabored respirations, skin warm/dry/pink. 17:39 Reassessment: Patient appears in no apparent distress at this time. No changes from kc6 previously documented assessment. Patient and/or family updated on plan of care and expected duration. Pain level reassessed. Patient is alert, oriented x 3, equal unlabored respirations, skin warm/dry/pink. Vital Signs: 10:51 BP 148 / 85; Pulse 92; Resp 16 S; Pulse Ox 96% on R/A; kc6 11:23 Weight 69.4 kg (R); Height 5 ft. 6 in. (R); kc6 11:55 BP 135 / 72; Pulse 84; Resp 16 S; Pulse Ox 97% on R/A; kc6 13:50 BP 129 / 73; Pulse 76; Resp 16 S; Pulse Ox 97% on R/A; kc6 15:39 BP 157 / 86; Pulse 89; Resp 15 S; Pulse Ox 97% on R/A; Pain 6/10; kc6 17:12 BP 142 / 86; Pulse 85; Resp 16 S; Pulse Ox 98% on R/A; kc6 11:23 Body Mass Index 24.69 (69.40 kg, 167.64 cm) kc6 15:39 Pain Scale: Adult kc6 ED Course: 10:15 Patient arrived in ED. im 10:20 Valencia Mccurdy is Attending Physician. ci 10:27 Arm band placed on Patient placed in an exam room, on a stretcher. ll1 10:35 Luisa Fowler, RN is Primary Nurse. kc6 10:49 CBC with Diff Sent. em1 10:49 CMP Sent. em1 10:49 Lipase Sent. em1 10:49 Initial lab(s) drawn, by me, sent to lab. Inserted saline lock: 20 gauge in right em1 antecubital area, using aseptic technique. Blood collected. 10:53 Triage completed. kc6 10:54 Patient has correct armband on for positive identification. Placed in gown. Bed in low kc6 position. Call light in reach. Side rails up X2. Adult w/ patient. Client placed on continuous cardiac and pulse oximetry monitoring. NIBP monitoring applied. 12:31 CT Abd/Pelvis - IV Contrast Only In Process Unspecified. EDMS 13:42 Urinalysis w/ reflexes Sent. ko1 14:17 Cornel Mazariegos MD is Hospitalizing Provider. ci 15:03 Surgeon. bd 15:04 Surgeon paged at 15:[address] surgeon . Dr atkinson at [phone]. bd 15:38 Surgeon returned call at 15:36. bd 15:40 initiated transfer to [facility]. bd 17:55 No provider procedures requiring assistance completed. Patient transferred, IV remains kc6 in place. Administered Medications: 10:50 Drug: NS 0.9% IV 1000 ml IV at 1 bolus Per protocol; 1000 mL bolus Route: IV; Rate: 1 kc6 bolus; Site: right antecubital; 15:38 Follow up: Response: No adverse reaction; IV Status: Completed infusion; IV Intake: kc6 1000ml 10:50 Drug: Ondansetron IVP 4 mg IVP once; over 2 minutes Route: IVP; Site: right antecubital;kc6 11:21 Follow up: Response: No adverse reaction kc6 10:50 Drug: morphine IVP or IV 4 mg IVP once over 4 mins Route: IVP; Infused Over: 4 mins; kc6 Site: right antecubital; 11:21 Follow up: Response: No adverse reaction; Pain is decreased; RASS: Alert and Calm (0) kc6 13:44 Drug: Potassium Chloride PO 40 mEq PO once Route: PO; ko1 17:10 Follow up: Response: No adverse reaction kc6 15:38 Drug: morphine IVP or IV 4 mg IVP once over 4 mins Route: IVP; Infused Over: 4 mins; kc6 Site: right antecubital; 17:10 Follow up: Response: No adverse reaction; Pain is decreased; RASS: Alert and Calm (0) kc6 Medication: 17:55 VIS not applicable for this client. kc6 Intake: 15:38 IV: 1000ml; Total: 1000ml. kc6 Outcome: 14:20 Decision to Hospitalize by Provider. ci 14:56 ER care complete, transfer ordered by MD. ci 17:55 Transferred by ground EMS to [facility], [facility], Transfer form completed. kc6 17:55 Condition: good 17:55 Instructed on the need for transfer, 18:17 Patient left the ED. kc6 Signatures: Dispatcher [employer] EDMS Pauline Malhotra Eric em1 Davi Manzo RN RN [email or web address] Luisa Fowler RN RN kc6 Siomara Steve RN RN ko1 Lroi Wright Valencia Mccurdy ci
--- NOTE | 2023-10-22 14:20 | EDPHYS ---
Physician Documentation [facility] Name: Kwadwo Morrissey Age: 78 yrs Sex: Male : 1945 Arrival Date: 10/22/2023 Time: 10:12 Bed 5 Private MD: ED Physician Valencia Mccurdy HPI: 10/21 12:12 This 78 yrs old Male presents to ER via Ambulatory with complaints of ci Abdominal Pain, Black/Tarry Stools, Weakness. 12:12 Patient is a 78-year-old male with PMH PA, hypertension who presents to the ED with ci chief complaint of generalized weakness, abdominal pain and tarry stools that began yesterday. Patient had a colonoscopy and was found to have a mass, biopsies were collected, awaiting biopsy result. Patient also noted to be hypokalemic. Has had a decreased appetite.. Historical: - Allergies: 10:53 No Known Allergies; kc6 - PMHx: 11:24 Myocardial infarction; Hypertensive disorder; kc6 - PSHx: 11:24 cardiac ablation; kc6 - Immunization history:: Adult Immunizations unknown. - Infectious Disease History:: Denies. - Social history:: Smoking status: unknown. - History obtained from: son. ROS: 12:12 Constitutional: Positive for fatigue, ci 12:12 Abdomen/GI: Positive for abdominal pain, black/tarry stool, Vital Signs: 10:51 BP 148 / 85; Pulse 92; Resp 16 S; Pulse Ox 96% on R/A; kc6 11:23 Weight 69.4 kg (R); Height 5 ft. 6 in. (R); kc6 11:55 BP 135 / 72; Pulse 84; Resp 16 S; Pulse Ox 97% on R/A; kc6 13:50 BP 129 / 73; Pulse 76; Resp 16 S; Pulse Ox 97% on R/A; kc6 15:39 BP 157 / 86; Pulse 89; Resp 15 S; Pulse Ox 97% on R/A; Pain 6/10; kc6 17:12 BP 142 / 86; Pulse 85; Resp 16 S; Pulse Ox 98% on R/A; kc6 11:23 Body Mass Index 24.69 (69.40 kg, 167.64 cm) kc6 15:39 Pain Scale: Adult kc6 MDM: 10:21 Patient medically screened. ci 13:58 ED course: Patient is a 78-year-old male with recently diagnosed colon mass s/p ci colonoscopy with biopsy who presents with persistent abdominal pain that is related to his colon mass. CT with large colon mass and mechanical bowel obstruction, incidental finding of liver cyst discussed with patient and family. Patient requesting pain meds and would like to be discharged. Awaiting UA at this time. Upon reassessment, discussed admission with patient and family, patient is hesitant to be admitted but agrees. Case discussed with hospitalist. General surgery consulted. Patient instructed to be NPO.. 14:21 Data reviewed: vital signs, nurses notes, diagnostic data from outside facility, Family ci has colonoscopy photos done yesterday by Dr. Desai which shows large colon mass. Historians other than the Patient: Daughter/Son: . Care significantly affected by the following chronic conditions: Hypertension. 15:33 ED course: Dr. Phan called me back and stated that we are unable to accept patient ci here at our facility and patient needs colorectal surgery. Transfer initiated at [facility]. I spoke with Dr. Blackwood, colorectal surgeon at [facility] who accepts consult and recommends admission to hospitalist. Awaiting hospitalist acceptance [facility]. Pain meds redosed.. 16:20 ED course: Patient accepted by hospitalist . ci 04 10:39 Order name: CBC with Diff; Complete Time: 13:59 ci 10/21 10:39 Order name: CMP; Complete Time: 12:11 ci 10/21 12:13 Interpretation: Abnormal: K 3.2. ci 10/21 10:39 Order name: Lipase; Complete Time: 12:11 ci 10/21 10:39 Order name: Urinalysis w/ reflexes; Complete Time: 14:32 ci 10/21 13:18 Order name: CBC Smear Scan; Complete Time: 13:59 EDMS 10/21 12:14 Order name: CT Abd/Pelvis - IV Contrast Only; Complete Time: 13:07 ci 10/21 14:11 Interpretation: Abnormal: Per Radiologist's finding(s): IMPRESSION: Very large sigmoid ci colon mass is present measuring approximately 10 x 7 cm. Multiple enlarged lymph nodes are seen surrounding the mass and any local/ regional stations. The findings are most compatible with neoplasia. Moderate mechanical obstruction of the colon and small intestine from this finding. 10/21 10:39 Order name: IV Saline Lock; Complete Time: 10:48 ci 10/21 10:39 Order name: Labs collected and sent; Complete Time: 10:48 ci Administered Medications: 10:50 Drug: NS 0.9% IV 1000 ml IV at 1 bolus Per protocol; 1000 mL bolus Route: IV; Rate: 1 kc6 bolus; Site: right antecubital; 15:38 Follow up: Response: No adverse reaction; IV Status: Completed infusion; IV Intake: kc6 1000ml 10:50 Drug: Ondansetron IVP 4 mg IVP once; over 2 minutes Route: IVP; Site: right antecubital;kc6 11:21 Follow up: Response: No adverse reaction kc6 10:50 Drug: morphine IVP or IV 4 mg IVP once over 4 mins Route: IVP; Infused Over: 4 mins; kc6 Site: right antecubital; 11:21 Follow up: Response: No adverse reaction; Pain is decreased; RASS: Alert and Calm (0) kc6 13:44 Drug: Potassium Chloride PO 40 mEq PO once Route: PO; ko1 17:10 Follow up: Response: No adverse reaction kc6 15:38 Drug: morphine IVP or IV 4 mg IVP once over 4 mins Route: IVP; Infused Over: 4 mins; kc6 Site: right antecubital; 17:10 Follow up: Response: No adverse reaction; Pain is decreased; RASS: Alert and Calm (0) kc6 Disposition Summary: 10/22/23 14:56 Transfer Ordered Notes: Transfer Location: [facility] ci Reason: Higher level of care ci Condition: Stable(10/22/23 14:56) ci Problem: new(10/22/23 14:56) ci Symptoms: are unchanged(10/22/23 14:56) ci Accepting Physician: Pending(10/22/23 18:17) kc6 Diagnosis - Localized swelling, mass and lump, unspecified - Colon mass(10/22/23 14:56) ci - Other intestinal obstruction(10/22/23 14:56) ci Forms: - Medication Reconciliation Form ci - SBAR form ci Signatures: Dispatcher [employer] Luisa Lion RN RN kc6 Siomara Steve RN RN ko1 Edmundalbert Valencia ci Corrections: (The following items were deleted from the chart) 12:14 12:14 Abdomen Pelvis W Con+CT.RAD.BRZ ordered. EDMS EDMS 14:16 14:01 Per Radiologist's finding(s): IMPRESSION: Very large sigmoid colon mass is ci present measuring approximately 10 x 7 cm. Multiple enlarged lymph nodes are seen surrounding the mass and any local/ regional stations. The findings are most compatible with neoplasia. Moderate mechanical obstruction of the colon and small intestine from this finding. ci 14:16 14:11 No acute disease: Per Radiologist's finding(s): IMPRESSION: Very large sigmoid ci colon mass is present measuring approximately 10 x 7 cm. Multiple enlarged lymph nodes are seen surrounding the mass and any local/ regional stations. The findings are most compatible with neoplasia. Moderate mechanical obstruction of the colon and small intestine from this finding. ci 14:23 13:58 ED course: Patient is a 78-year-old male with recently diagnosed colon mass s/p ci colonoscopy with biopsy who presents with persistent abdominal pain that is related to his colon mass. CT with no acute finding, incidental finding of liver cyst discussed with patient and family. Patient requesting pain meds and would like to be discharged. Awaiting UA at this time. Reports symptoms significantly improved.. ci 14:54 14:20 Inpatient Admission ci ci 14:54 14:20 Cornel Mazariegos ci ci 14:54 14:20 Telemetry/MedSurg (Inpatient) ci ci 14:54 14:20 Stable ci ci 14:54 14:20 an acute exacerbation ci ci 14:54 14:20 are unchanged ci ci 14:54 14:20 Standard ci ci 14:54 14:20 ci ci 14:54 14:20 Abdominal pain, Generalized ci ci 14:54 14:20 Other intestinal obstruction ci ci 14:54 14:20 Localized swelling, mass and lump, unspecified - Colon Mass ci ci 14:54 14:54 Inpatient Admission ci ci 18:17 14:56 Pending ci kc6
[2023-10-22 14:26] LABS: Specific Gravity > 1.030 (1.005-1.030); Sqamous Epithelial <5 /HPF (None Seen); Urine Bacteria None Seen /HPF (<20); Urine Bilirubin NEGATIVE (Negative); Urine Blood Negative (Negative); Urine Clarity Clear (Clear); Urine Color Light-Yellow (Yellow); Urine Culture Reflex Order NOT NEEDED; Urine Glucose NEGATIVE (Negative); Urine Ketones 2+ (Negative); Urine Microscopic Reflex YN ORDER UMIC; Urine Mucus Slight /HPF (None Seen); Urine Nitrite NEGATIVE (Negative); Urine Protein NEGATIVE (Negative); Urine Urobilinogen Normal (Normal); Urine WBC <5 /HPF (<5); Urine pH 6.5 (5.0-7.0)
[2023-10-22 18:58] VITALS: BP 142/86; O2SAT 98
== END 2023-10-22 18:17 | disposition short-term general hospital (02) ==
LOC: ER 10:12
DX: K56.699 Other intestinal obstruction unspecified as to partial versus complete obstruction (principal); I10 Essential (primary) hypertension; I25.2 Old myocardial infarction
CPT/HCPCS: 96361; 85025; 81001; 36415; 83690; 80053; 74177; 96375; 96374; 99285; Q9967; J2405; J7030